=== PATIENT | female | born 1995 | race Asian ===

== ENCOUNTER 2023-02-17 16:35 | Emergency (ER) | payer MEDICAID ==
[~2023-02-17] VITALS: Ht 160 cm; Wt 75.0 kg
[2023-02-17 17:00] VITALS: BP 129/76; PULSE 119; RESP 20; TEMP 98.6; O2SAT 98
[2023-02-17] MEDS ORDERED: CEPH-585 PO (19:07)
[2023-02-17] MEDS ORDERED: SULF1TAB49 PO (19:07)
== END 2023-02-17 19:27 | disposition home or self-care (01) ==
LOC: ER 16:36
DX: L03.116 Cellulitis of left lower limb (principal); Z88.0 Allergy status to penicillin
CPT/HCPCS: 99283

== ENCOUNTER 2023-05-16 17:33 | Emergency (ER) | payer MEDICAID ==
[~2023-05-16] VITALS: Ht 160 cm; Wt 89.1 kg
[~2023-05-16 17:33] MED LIST: CEPH-585 PO
[2023-05-16 17:40] VITALS: BP 143/67; PULSE 133; RESP 26; TEMP 99.1; O2SAT 98
[2023-05-17] MEDS ORDERED: CEPH-585 PO (16:01)
[2023-05-17] MEDS ORDERED: PERM60CR19 TOP (16:01)
== END 2023-05-17 00:20 | disposition left against medical advice (07) ==
LOC: ER 17:34
DX: M79.89 Other specified soft tissue disorders (principal); Z53.21 Procedure and treatment not carried out due to patient leaving prior to being seen by health care provider
CPT/HCPCS: 71045; 99281

== ENCOUNTER 2023-05-17 12:28 | Emergency (ER) | payer MEDICAID ==
[~2023-05-17] VITALS: Ht 160 cm; Wt 88.3 kg
[2023-05-17 14:35] VITALS: TEMP 98.4
[2023-05-17] MEDS ORDERED: CEPH-585 PO (16:01)
[2023-05-17] MEDS ORDERED: PERM60CR19 TOP (16:01)
[2023-05-17 16:31] VITALS: BP 125/65; PULSE 98; RESP 16; O2SAT 96
== END 2023-05-17 16:41 | disposition home or self-care (01) ==
LOC: ER 12:28
DX: B86 Scabies (principal); Z88.0 Allergy status to penicillin
CPT/HCPCS: 99283